=== PATIENT | female | born 1955 | race Caucasian/White ===

== ENCOUNTER 2018-07-28 22:12 | Emergency (ER) | payer OTHER ==
[~2018-07-28] VITALS: Ht 162.6 cm; Wt 58.0 kg
[~2018-07-28 22:12] MED LIST: BACTRIM DS1 TAB PO; ENALAPRIL10 MG PO; EPIPEN0.3 MG IM; EQL IBUPROFEN200 M1; IBUPROFEN200 MG PO; LISINOPRIL20 M1 PO; LORTAB 5/3255 MG PO; MEDDOSEPAK PO; MULTI VIT PO; OMEGA 31000 MG PO; OMEGA-3 FISH1000 M1 PO; PHENERGAN12.5 MG/TA PO; PRAVASTATIN SOD20 MG PO; PRAVASTATIN20 MG PO; PRILOSEC20 MG PO; PROAIR HFA IN; TRAMADOL HCL50 MG PO; VITAMIN B-121000 MCG PO; VITAMIN B-12500 MCG PO; VOLTAREN1%GEL TOP
[2018-07-28] MEDS ORDERED: TRAZODONE HCL50 MG PO (23:40)
[2018-07-28] MEDS ORDERED: AMLODIPINE5 MG PO (23:42)
[2018-07-28] MEDS ORDERED: BACLOFEN10 MG PO (23:43)
[2018-07-28] MEDS ORDERED: BAYER ASA325 MG PO (23:43)
[2018-07-28] MEDS ORDERED: HYDROCHLOROT12.5 MG PO (23:44)
[2018-07-28 23:46] LABS: URINE BILIRUBIN - DIPSTICK NEGATIVE (NEGATIVE); URINE BLOOD DIPSTICK TRACE-INTACT (NEGATIVE); URINE COLOR YELLOW; URINE GLUCOSE - DIPSTICK NEGATIVE (NEGATIVE); URINE KETONE NEGATIVE (NEGATIVE); URINE LEUK ESTERASE NEGATIVE (NEGATIVE); URINE NITRITE - DIPSTICK NEGATIVE (Negative); URINE PH 6.5 (4.5-8.0); URINE PROTEIN - DIPSTICK NEGATIVE (NEG-TRACE); URINE SPECIFIC GRAVITY <=1.005; URINE UROBILINOGEN - DIPSTICK 0.2 E.U./dL (0.2)
[2018-07-28 23:48] LABS: URINE CLARITY CLEAR
[2018-07-28 23:50] LABS: HEMATOCRIT 39.6 % (37.0-47.0); HEMOGLOBIN 13.3 g/dl (12.0-16.0); IMMATURE GRANULOCYTES 0.3 % (0.0-5.0); MEAN CORPUSCULAR HGB 33.3 pG CALC (26.0-32.0); MEAN CORPUSCULAR HGB CONC 33.6 g/L CALC (32.0-36.0); NEUT# 3.39 thou/uL (2.00-7.15); RED CELL DISTRI WIDTH 12.5 % (11.5-15.5)
[2018-07-29 00:43] LABS: ALBUMIN 4.4 g/dL (3.2-5.0); ALKALINE PHOSPHATASE 90 u/l (38-126); AMYLASE 107 u/l (30-110); ANION GAP 14 (6-22 (CALC)); BILIRUBIN, TOTAL 0.8 mg/dL (0.0-1.4); BUN 16 mg/dL (8-23); BUN/CREATININE RATIO 23 (12-20 (CALC)); CARBON DIOXIDE 26 mmol/l (22-30); CHLORIDE 103 mmol/l (95-108); CREATININE 0.7 mg/dL (0.5-1.0); GFR > 60 ML/MIN (>=60 (CALC)); GFR FOR AFR.AMER. > 60 ML/MIN (>=60 (CALC)); LIPASE 72 u/l (23-300); POTASSIUM 3.8 mmol/l (3.5-5.1); SGOT/AST 32 u/l (9-36); SODIUM 139 mmol/l (137-146)
[2018-07-29 00:54] LABS: MYOGLOBIN 48 ng/mL (0 - 62)
[2018-07-29 00:56] LABS: TOTAL PROTEIN 8.2 g/dL (6.3-8.2)
[2018-07-29] MEDS ORDERED: CIPROFLOXACN500 MG PO (01:55)
[2018-07-29] MEDS ORDERED: METRONIDAZOL500 MG PO (01:55)
[2018-07-29 02:09] VITALS: BP 157/66
== END 2018-07-29 02:09 | disposition home or self-care (01) | DRG 386 ==
LOC: ED 22:12
PROVIDERS: Emergency Medicine
DX: K50.10 Crohn's disease of large intestine without complications (principal); K59.00 Constipation, unspecified; I69.954 Hemiplegia and hemiparesis following unspecified cerebrovascular disease affecting left non-dominant side; I10 Essential (primary) hypertension; E78.00 Pure hypercholesterolemia, unspecified

== ENCOUNTER → 2022-07-08 | Emergency (ER) | payer MEDICARE, BC ==
[~2022-07-08] VITALS: Ht 162.6 cm; Wt 63.5 kg
[~2022-07-08] MED LIST changes: +AMLODIPINE5 MG PO; +BACLOFEN10 MG PO; +BAYER ASA325 MG PO; +CIPROFLOXACN500 MG PO; +HYDROCHLOROT12.5 MG PO; +IPRATROPIU0.5 MG/3 M IN; +METRONIDAZOL500 MG PO; +NEBULIZER KIT/TUBING PO; +PREDNISONE50 MG PO; +PROAIR HFA108 MCG/AC PO; +TRAZODONE HCL50 MG PO; +ZPAK PO
[2022-07-08 15:08] VITALS: BP 133/71
[2022-07-08 15:30] VITALS: BP 146/80
[2022-07-08 15:34] LABS: HEMOGLOBIN 12.1 g/dl (12.0-16.0); IMMATURE GRANULOCYTES 0.2 % (0.0-5.0); MEAN CORPUSCULAR HGB 34.2 pG CALC (26.0-32.0); MEAN CORPUSCULAR HGB CONC 32.9 g/dL CAL (32.0-36.0); NEUT# 4.46 thou/uL (2.00-7.15); RED BLOOD COUNT 3.54 mill/uL (4.20-5.60); RED CELL DISTRI WIDTH 12.9 % (11.5-15.5)
[2022-07-08 15:42] LABS: HEMATOCRIT 36.8 % (37.0-47.0)
[2022-07-08 16:00] VITALS: BP 147/57
[2022-07-08 16:15] LABS: ALBUMIN 4.3 g/dL (3.2-5.0); BILIRUBIN, TOTAL 0.7 mg/dL (0.0-1.4); CREATININE 1.1 mg/dL (0.5-1.0); POTASSIUM 4.4 mmol/l (3.5-5.1); TOTAL PROTEIN 7.8 g/dL (6.3-8.2)
[2022-07-08 16:30] VITALS: BP 161/70
[2022-07-08 17:00] VITALS: BP 152/70
== END | disposition home or self-care (01) ==
LOC: ED 15:02
PROVIDERS: Family Medicine
DX: J44.1 Chronic obstructive pulmonary disease with (acute) exacerbation (principal); I10 Essential (primary) hypertension; E78.00 Pure hypercholesterolemia, unspecified; Z86.73 Personal history of transient ischemic attack (TIA), and cerebral infarction without residual deficits; Z85.3 Personal history of malignant neoplasm of breast; Z20.822 Contact with and (suspected) exposure to COVID-19